=== PATIENT | female | born 1995 | race Caucasian/White ===

== ENCOUNTER 2017-10-28 19:13 | Emergency (ER) | payer SELFPAY ==
[~2017-10-28] VITALS: Ht 157.5 cm; Wt 46.4 kg
[2017-10-28 19:23] VITALS: BP 132/81
== END 2017-10-28 22:17 | disposition home or self-care (01) ==
LOC: ED 21:45
DX: S16.1XXA Strain of muscle, fascia and tendon at neck level, initial encounter (principal); S39.92XA Unspecified injury of lower back, initial encounter; S29.9XXA Unspecified injury of thorax, initial encounter; V49.88XA Car occupant (driver) (passenger) injured in other specified transport accidents, initial encounter; Y93.89 Activity, other specified; Y92.488 Other paved roadways as the place of occurrence of the external cause; Y99.8 Other external cause status
CPT/HCPCS: 70450; 72125; 99284